=== PATIENT | female | born 1975 | race African-American/Black ===

== ENCOUNTER 2021-03-30 13:30 | Outpatient (CLI) | payer OTHER | END 2021-03-30 13:31 | disposition home or self-care (01) | LOC: CSHMRI 13:30 | PROVIDERS: ATTEND Orthopaedic Surgery | DX: M54.42 Lumbago with sciatica, left side (principal); M51.27 Other intervertebral disc displacement, lumbosacral region; M48.07 Spinal stenosis, lumbosacral region; N83.9 Noninflammatory disorder of ovary, fallopian tube and broad ligament, unspecified | CPT/HCPCS: 72148 ==

== ENCOUNTER 2021-06-14 08:45 | Outpatient (CLI) | payer OTHER | END 2021-06-14 08:46 | disposition home or self-care (01) | LOC: CSHMRI 08:45 | PROVIDERS: ATTEND Family Medicine | DX: M25.552 Pain in left hip (principal); M25.562 Pain in left knee; M67.854 Other specified disorders of tendon, left hip; S76.012A Strain of muscle, fascia and tendon of left hip, initial encounter; M23.322 Other meniscus derangements, posterior horn of medial meniscus, left knee; M67.462 Ganglion, left knee; M25.762 Osteophyte, left knee; M22.42 Chondromalacia patellae, left knee ==